=== PATIENT | female | born 1985 | race Two or more races ===

== ENCOUNTER → 2017-01-22 | Outpatient (REF) | payer BC, OTHER ==
[2017-01-22 18:54] LABS: BASO % 0.2 % (0.0-1.0); LARGE UNSTAINED CELL # 0.4 K/mm3 (0.0-0.4); LARGE UNSTAINED CELL % 1.9 % (0.0-4.0); LYMPH # 4.4 K/mm3 (1.5-4.5); MEAN CORPUSCULAR HEMOGLOBIN 30.6 pg (27.0-33.0); MEAN CORPUSCULAR HGB CONC 32.5 g/dl (32.0-36.5); MEAN CORPUSCULAR VOLUME 94.1 fl (80.0-96.0); MONO # 1.1 K/mm3 (0.0-0.8); MONO % 5.6 % (0.0-5.0); NEUTROPHILS # 14.6 K/mm3 (1.8-7.7); NEUTROPHILS % 72.3 % (36.0-66.0); PLATELET COUNT, AUTOMATED 418 k/mm3 (150-450); RED CELL DISTRIBUTION WIDTH 12.5 % (11.5-14.5); WHITE BLOOD COUNT 20.1 K/mm3 (4.0-10.0)
[2017-01-22 19:04] LABS: ALBUMIN 3.8 GM/DL (3.2-5.2); ALBUMIN/GLOBULIN RATIO 1.03 (1.00-1.93); ALKALINE PHOSPHATASE 77 U/L (45-117); ALT/SGPT 23 U/L (12-78); ANION GAP 6 MEQ/L (8-16); AST/SGOT 10 U/L (15-37); BILIRUBIN,TOTAL 0.6 MG/DL (0.2-1.0); BLOOD UREA NITROGEN 13 MG/DL (7-18); CALCIUM LEVEL 9.3 MG/DL (8.5-10.1); CARBON DIOXIDE LEVEL 29 MEQ/L (21-32); CHLORIDE LEVEL 106 MEQ/L (98-107); CREATININE FOR GFR 0.79 MG/DL (0.55-1.02); GLOMERULAR FILTRATION RATE > 60.0 (>60); GLUCOSE, FASTING 73 MG/DL (70-105); POTASSIUM SERUM 3.9 MEQ/L (3.5-5.1); SODIUM LEVEL 141 MEQ/L (136-145); TOTAL PROTEIN 7.5 GM/DL (6.4-8.2)
== END ==
LOC: M LABNEURO 17:00
PROVIDERS: ATTEND Psychiatry & Neurology Neurology
DX: G35 Multiple sclerosis (principal)

== ENCOUNTER → 2017-11-14 | Outpatient (CLI) | payer BC ==
[2017-11-14 16:31] LABS: MISCELLANEOUS TEST LAB See Separate Report
[2017-11-14 17:03] LABS: BASO % 0.5 % (0.0-1.0); EOS # 0.3 10^3/uL (0.0-0.50); EOS % 5.4 % (0.0-3.0); HEMATOCRIT 36.6 % (36.0-47.0); HEMOGLOBIN 12.4 g/dl (12.0-15.5); IMMATURE GRANULOCYTE % 0.2 % (0-3.0); LYMPH # 2.7 10^3/uL (1.5-4.5); LYMPH % 45.1 % (24.0-44.0); MEAN CORPUSCULAR HEMOGLOBIN 29.8 pg (27.0-33.0); MEAN CORPUSCULAR HGB CONC 33.9 g/dl (32.0-36.5); MONO # 0.8 10^3/uL (0.0-0.8); MONO % 12.5 % (0.0-5.0); NEUTROPHILS # 2.2 10^3/uL (1.8-7.7); NEUTROPHILS % 36.3 % (36.0-66.0); PLATELET COUNT, AUTOMATED 288 10^3/uL (150-450); RED BLOOD COUNT 4.16 10^6/uL (4.00-5.40); RED CELL DISTRIBUTION WIDTH 12.9 % (11.5-14.5); WHITE BLOOD COUNT 6.1 10^3/uL (4.0-10.0)
[2017-11-14 18:05] LABS: ALBUMIN 3.6 GM/DL (3.2-5.2); ALBUMIN/GLOBULIN RATIO 0.92 (1.00-1.93); ALKALINE PHOSPHATASE 73 U/L (45-117); ALT/SGPT 30 U/L (12-78); ANION GAP 8 MEQ/L (8-16); AST/SGOT 22 U/L (7-37); BILIRUBIN,TOTAL 0.4 MG/DL (0.2-1.0); BLOOD UREA NITROGEN 5 MG/DL (7-18); CALCIUM LEVEL 8.8 MG/DL (8.5-10.1); CARBON DIOXIDE LEVEL 26 MEQ/L (21-32); CHLORIDE LEVEL 107 MEQ/L (98-107); CREATININE FOR GFR 0.76 MG/DL (0.55-1.30); GLOMERULAR FILTRATION RATE > 60.0 (>60); GLUCOSE, FASTING 90 MG/DL (70-100); POTASSIUM SERUM 3.8 MEQ/L (3.5-5.1); SODIUM LEVEL 141 MEQ/L (136-145); TOTAL PROTEIN 7.5 GM/DL (6.4-8.2)
[2017-11-17 10:07] LABS: TOTAL 25(OH) VITAMIN D 12.2 NG/ML (30.0-100.0)
[2017-11-17 10:11] LABS: HEPATITIS B SURFACE ANTIBODY POSITIVE (POSITIVE)
[2017-11-17 10:19] LABS: HEPATITIS B SURFACE ANTIGEN NEGATIVE (NEGATIVE)
[2017-11-17 10:46] LABS: HEPATITIS C VIRUS ABY INDEX < 0.0 INDEX (<0.8)
[2017-11-27 00:06] LABS: ANTINUCLEAR ANTIBODIES DIRECT Negative (Negative); HBVCOREDIFF1 Negative (Negative); HBVCOREDIFF2 Negative (Negative); HEPATITIS BE ANTIBODY Negative (Negative); HEPATITIS BE ANTIGEN Negative (Negative); HERPES ZOSTER, VARICELLA IgG 702 index (Immune >165); JCV ANTIBODY Negative (.); QUANTIFERON GOLD TB Negative (Negative); SJOGREN'S ANTI SS-A <0.2 AI (0.0-0.9); SJOGREN'S ANTI SS-B <0.2 AI (0.0-0.9); TB Test (QFT) Antigen 0.06 IU/mL (.); TB Test (QFT) Mitogen 7.11 IU/mL (.); TB Test (QFT) Nil 0.06 IU/mL (.)
[2017-12-02 13:31] LABS: MOG-IgG1 FACS SEE SEPARATE REPORT
== END ==
LOC: M LAB 15:28
DX: G35 Multiple sclerosis (principal)
CPT/HCPCS: 84443

== ENCOUNTER 2018-07-13 16:46 | Emergency (ER) | payer BC ==
[~2018-07-13] VITALS: Ht 162.6 cm; Wt 63.6 kg
[2018-07-13] MEDS ORDERED: VITA500046 PO (17:03)
[2018-07-13] MEDS ORDERED: [UNRECOGNIZED DRUG - CODE] PO (17:03)
[2018-07-13] MEDS ORDERED: VITA500T53 PO (17:03)
[2018-07-13 18:14] LABS: HEMATOCRIT 34.4 % (36.0-47.0); HEMOGLOBIN 11.7 g/dl (12.0-15.5); MEAN CORPUSCULAR HEMOGLOBIN 29.9 pg (27.0-33.0); PLATELET COUNT, AUTOMATED 322 10^3/uL (150-450); RED BLOOD COUNT 3.91 10^6/uL (4.00-5.40)
[2018-07-13 18:27] LABS: INR 0.93; PROTHROMBIN TIME 12.6 SECONDS (12.1-14.4)
[2018-07-13] MEDS ORDERED: TYSA1INJ IV (18:27)
[2018-07-13 18:39] LABS: AMPHETAMINES LEVEL URINE NEGATIVE (NEGATIVE); BARBITURATES URINE NEGATIVE (NEGATIVE); BENZODIAZEPINES URINE NEGATIVE (NEGATIVE); CANNABINOIDS URINE NEGATIVE (NEGATIVE); COCAINE METABOLITE URINE NEGATIVE (NEGATIVE); METHADONE URINE NEGATIVE (NEGATIVE); OPIATES URINE NEGATIVE (NEGATIVE); PHENCYCLIDINE URINE NEGATIVE (NEGATIVE)
[2018-07-13 18:44] LABS: BLOOD UREA NITROGEN 11 MG/DL (7-18); CALCIUM LEVEL 8.8 MG/DL (8.5-10.1); CARBON DIOXIDE LEVEL 24 MEQ/L (21-32); CHLORIDE LEVEL 109 MEQ/L (98-107); CREATININE FOR GFR 0.84 MG/DL (0.55-1.30); ETHYL ALCOHOL (ETHANOL) < 0.003 % (0.000-0.010); GLOMERULAR FILTRATION RATE > 60.0 (>60); GLUCOSE, FASTING 94 MG/DL (70-100); POTASSIUM SERUM 3.8 MEQ/L (3.5-5.1); SODIUM LEVEL 139 MEQ/L (136-145)
[2018-07-13 18:48] LABS: WHITE BLOOD COUNT 13.1 10^3/uL (4.0-10.0)
--- NOTE | 2018-07-13 18:50 | REP ---
PA and lateral chest: There are no comparisons. The lung chiledrs are clear. The cardiac size is normal. The sylvain, mediastinum, and skeletal structures are unremarkable. Impression: Negative PA and lateral chest. Electronically Signed by Matt Corbett MD 07/13/2018 06:42 P
[2018-07-13 18:52] LABS: ATYPICAL LYMPH 1 % (0-5); EOSINOPHILS 2 % (0-5); LYMPHOCYTES 58 % (16-52); MONOCYTES 3 % (0-8); NEUTROPHILS 35 % (35-75); PLATELET ESTIMATE NORMAL (NORMAL)
[2018-07-13] MEDS ORDERED: CIPR-249 PO (19:48)
[2018-07-13] MEDS ORDERED: CIPROFLOXACIN 500 MG TAB PO ONE (20:00)
[2018-07-13 20:13] VITALS: BP 113/69
--- NOTE | 2018-07-14 18:59 | ECGEPIP ---
Stationary ECG Study [facility] - ED Test Date: 2018-07-13 Pat Name: CRISTOBAL DONG Department: Room: - Gender: F Bow Stapler: MONA : 1985 Requested By: LISSA WALL Order Number: [id number] Reading MD: Bri Crystal Measurements Intervals Mena Rate: 65 P: 60 MI: 174 QRS: 37 QRSD: 88 T: 17 QT: 374 QTc: 389 Interpretive Statements SINUS RHYTHM NO PRIOR FOR COMPARISON Electronically Signed On 07-14-2018 18:59:13 EST by Bri Crystal
== END 2018-07-13 20:14 | disposition home or self-care (01) ==
LOC: M ED 16:46
DX: R55 Syncope and collapse (principal); N39.0 Urinary tract infection, site not specified; G35 Multiple sclerosis; J45.909 Unspecified asthma, uncomplicated; Z79.899 Other long term (current) drug therapy
CPT/HCPCS: 36415; 71046; 80048; 80307; 81001; 84443; 85025; 85610; 87086; 93005; 94760; 99284; G0480

== ENCOUNTER 2019-02-19 14:28 | Outpatient (CLI) | payer BC ==
[~2019-02-19] VITALS: Ht 162.6 cm; Wt 63.6 kg
[~2019-02-19 14:28] MED LIST: CIPR-249 PO; TYSA1INJ IV; VITA500046 PO; VITA500T17 PO; [UNRECOGNIZED DRUG - CODE] PO
[2019-02-19 14:30] VITALS: BP 111/58
[2019-02-19] MEDS ORDERED: methylPREDNISolone 1,000 MG, VIAL MATE ADAPTER 1 EACH in D5W 250 ML IV ONE (14:45)
[2019-02-19] MEDS ORDERED: MIRE1IUD IU (15:18)
[2019-02-19 16:20] VITALS: BP 117/67
== END 2019-02-19 16:20 | disposition home or self-care (01) ==
LOC: M INFU 14:28
PROVIDERS: ATTEND Psychiatry & Neurology Neurology
DX: G35 Multiple sclerosis (principal)
CPT/HCPCS: 96365; J2930

== ENCOUNTER 2019-02-20 09:19 | Outpatient (CLI) | payer BC ==
[~2019-02-20] VITALS: Ht 162.6 cm; Wt 64.0 kg
[~2019-02-20 09:19] MED LIST changes: +MIRE1IUD IU
[2019-02-20 09:40] VITALS: BP 146/64
[2019-02-20] MEDS ORDERED: methylPREDNISolone 1000 MG VIAL (J2930) As Ordered ONE (09:49)
[2019-02-20] MEDS ORDERED: methylPREDNISolone 1,000 MG, VIAL MATE ADAPTER 1 EACH in NS 250 ML IV ONE (10:00)
[2019-02-20 11:05] VITALS: BP 122/67
== END 2019-02-20 11:10 | disposition home or self-care (01) ==
LOC: M OPCLIPED 09:19 → M PED 09:20 → M OPCLIPED 11:10
PROVIDERS: ATTEND Psychiatry & Neurology Neurology
DX: G35 Multiple sclerosis (principal)
CPT/HCPCS: 96365; J2930

== ENCOUNTER 2020-04-12 14:52 | Outpatient (CLI) | payer BC ==
[~2020-04-12] VITALS: Ht 162.6 cm; Wt 86.7 kg
[~2020-04-12 14:52] MED LIST changes: +methylPREDNISolone 1,000 MG, VIAL MATE ADAPTER 1 EACH in D5W 250 ML IV ONE
[2020-04-12 15:00] VITALS: BP 129/69
[2020-04-12] MEDS ORDERED: NEUR300C PO (15:16)
[2020-04-12 16:35] VITALS: BP 124/69
[2020-04-12 17:00] VITALS: BP 122/76
== END 2020-04-12 17:00 | disposition home or self-care (01) ==
LOC: M INFU 14:52
PROVIDERS: ATTEND Nurse Practitioner
DX: G35 Multiple sclerosis (principal)
CPT/HCPCS: 96365; J2930

== ENCOUNTER 2020-04-13 14:59 | Outpatient (CLI) | payer BC ==
[~2020-04-13] VITALS: Ht 162.6 cm; Wt 86.7 kg
[~2020-04-13 14:59] MED LIST changes: +NEUR300C PO; -methylPREDNISolone 1,000 MG, VIAL MATE ADAPTER 1 EACH in D5W 250 ML IV ONE
[2020-04-13] MEDS ORDERED: methylPREDNISolone 1,000 MG, VIAL MATE ADAPTER 1 EACH in D5W 250 ML IV ONE (15:00)
[2020-04-13 15:38] VITALS: BP 121/74
[2020-04-13 16:35] VITALS: BP 124/68
== END 2020-04-13 16:35 | disposition home or self-care (01) ==
LOC: M INFU 14:59
PROVIDERS: ATTEND Nurse Practitioner
DX: G35 Multiple sclerosis (principal)
CPT/HCPCS: 96365; J2930

== ENCOUNTER 2020-04-14 13:50 | Outpatient (CLI) | payer BC ==
[~2020-04-14] VITALS: Ht 162.6 cm; Wt 86.7 kg
[2020-04-14] MEDS ORDERED: methylPREDNISolone 1,000 MG, VIAL MATE ADAPTER 1 EACH in D5W 250 ML IV ONE (14:00)
[2020-04-14 14:13] VITALS: BP 125/68
[2020-04-14 15:20] VITALS: BP 118/63
== END 2020-04-14 15:20 | disposition home or self-care (01) ==
LOC: M INFU 13:50
PROVIDERS: ATTEND Nurse Practitioner
DX: G35 Multiple sclerosis (principal)
CPT/HCPCS: 96365; J2930

== ENCOUNTER → 2020-06-13 | Outpatient (CLI) | payer BC ==
[~2020-06-13] MED LIST changes: +PROHANCE 279.3MG/ML 15ML VIAL As Ordered ONE
--- NOTE | 2020-06-13 09:17 | REPVR ---
PROCEDURE INFORMATION: Exam: MR Head Without and With Contrast Exam date and time: 06/13/2020 9:08 AM Age: 34 years old Clinical indication: Condition or disease; Multiple sclerosis; Additional info: Ms TECHNIQUE: Imaging protocol: MR of the head without and with intravenous contrast. 3D rendering (Not supervised by radiologist): MIP and/or 3D reconstructed images were created by the technologist. Contrast material: PROHANCE; Contrast volume: 13 ml; Contrast route: INTRAVENOUS (IV); COMPARISON: No relevant prior studies available. FINDINGS: Brain: Multiple areas of periventricular, subcortical, and deep white matter FLAIR signal abnormalities, left greater than right consistent with patient's given history of multiple scleroses. No associated abnormal enhancement or restricted diffusion to suggest active demyelinating plaque. No acute infarct, mass, midline shift, or mass effect. No evidence of hemorrhage. No abnormal enhancement. Cerebral ventricles: No ventriculomegaly. Bones/joints: Unremarkable. Paranasal sinuses: Mild mucosal thickening of bilateral maxillary sinuses and ethmoidal air cells. Mastoid air cells: Normal as visualized. No mastoid effusion. Orbits: Unremarkable. Soft tissues: Unremarkable. IMPRESSION: Multiple areas of periventricular, subcortical, and deep white matter FLAIR signal abnormalities, left greater than right consistent with patient's given history of multiple scleroses. No associated abnormal enhancement or restricted diffusion to suggest active demyelinating plaque. Electronically signed by: Jazmin Martin On 06/13/2020 09:18:16 AM
--- NOTE | 2020-06-13 09:21 | REPVR ---
PROCEDURE INFORMATION: Exam: MR Cervical Spine Without and With Contrast Exam date and time: 06/13/2020 9:08 AM Age: 34 years old Clinical indication: Condition or disease; Other: Ms TECHNIQUE: Imaging protocol: Multiplanar magnetic resonance images of the cervical spine without and with intravenous contrast. Contrast material: PROHANCE; Contrast volume: 13 ml; Contrast route: INTRAVENOUS (IV); COMPARISON: No relevant prior studies available. FINDINGS: Vertebrae: Unremarkable. Spinal cord: Elen on STIR images, there are large diffuse areas of abnormal signal throughout the visualized cervical and thoracic spine with large confluent area is seen at the level of C4-C6 measuring about 14 mm in craniocaudal direction. No associated abnormal enhancement. Findings are consistent with patient given history of multiple scleroses plaques. No cord compression. Discs/Spinal canal/Neural foramina: No significant disc disease. No significant spinal stenosis. Vasculature: Expected flow voids in the vertebral arteries. Soft tissues: Unremarkable IMPRESSION: Elen on STIR images, there are large diffuse areas of abnormal signal throughout the visualized cervical and thoracic spine with large confluent area is seen at the level of C4-C6 measuring about 14 mm in craniocaudal direction. No associated abnormal enhancement. Findings are consistent with patient given history of multiple scleroses plaques. No cord compression. Electronically signed by: Jazmin Martin On 06/13/2020 09:21:54 AM
== END ==
LOC: M RAD 07:26
DX: G35 Multiple sclerosis (principal)
CPT/HCPCS: 70553; 72156; A9576

== ENCOUNTER 2020-06-23 06:52 | Outpatient (CLI) | payer BC ==
[~2020-06-23] VITALS: Ht 162.6 cm; Wt 66.7 kg
[~2020-06-23 06:52] MED LIST changes: -PROHANCE 279.3MG/ML 15ML VIAL As Ordered ONE
[2020-06-23 06:55] VITALS: BP 135/60
[2020-06-23] MEDS ORDERED: NATALIZUMAB OVER 1 HOUR IV ONE ×2 (07:00)
[2020-06-23] MEDS ORDERED: NS 1,000 ML IV SCH (07:00)
[2020-06-23] MEDS ORDERED: diphenhydrAMINE 50MG/ML VIAL (J1200) IV PRN (07:01)
[2020-06-23] MEDS ORDERED: EPINEPHrine INJ 1 MG/ML 1ML AMP IM PRN (07:01)
[2020-06-23] MEDS ORDERED: methylPREDNISolone 125MG 2ML VIAL IV PRN (07:01)
[2020-06-23] MEDS ORDERED: ALBUTEROL SULFATE 2.5 MG/0.5 ML INH NEB SOLN INH PRN (07:01)
[2020-06-23 08:15] VITALS: BP 128/74
[2020-06-23 09:11] VITALS: BP 127/81
== END 2020-06-23 09:15 | disposition home or self-care (01) ==
LOC: M INFU 06:52
PROVIDERS: ATTEND Nurse Practitioner Adult Health
DX: G35 Multiple sclerosis (principal)
CPT/HCPCS: 96365; J2323

== ENCOUNTER 2020-07-21 06:55 | Outpatient (CLI) | payer BC ==
[~2020-07-21] VITALS: Ht 162.6 cm; Wt 66.7 kg
[2020-07-21] MEDS ORDERED: NS 1,000 ML IV ONE (07:00)
[2020-07-21] MEDS ORDERED: NATALIZUMAB OVER 1 HOUR IV ONE ×2 (07:00)
[2020-07-21 07:07] VITALS: BP 127/61
[2020-07-21 07:23] VITALS: BP 127/61
[2020-07-21] MEDS ORDERED: methylPREDNISolone (125 MG/2 ML) IV IV PRN (07:30)
[2020-07-21] MEDS ORDERED: EPINEPHrine (1MG/ML) IV IM PRN (07:30)
[2020-07-21] MEDS ORDERED: ALBUTEROL SULFATE (2.5MG/0.5ML) NEB INH PRN (07:30)
[2020-07-21] MEDS ORDERED: diphenhydrAMINE (50MG/ML) IV IV PRN (07:30)
[2020-07-21 08:25] VITALS: BP 132/76
[2020-07-21 08:59] VITALS: BP 131/81
== END 2020-07-21 09:00 | disposition home or self-care (01) ==
LOC: M INFU 06:55
PROVIDERS: ATTEND Nurse Practitioner Adult Health
DX: G35 Multiple sclerosis (principal)
CPT/HCPCS: 96365; J2323

== ENCOUNTER 2020-08-18 06:49 | Outpatient (CLI) | payer BC ==
[~2020-08-18] VITALS: Ht 162.6 cm; Wt 66.7 kg
[2020-08-18 07:00] VITALS: BP 117/68
[2020-08-18] MEDS ORDERED: NATALIZUMAB OVER 1 HOUR IV ONE ×2 (07:00)
[2020-08-18] MEDS ORDERED: NS 1,000 ML IV ONE (07:00)
[2020-08-18] MEDS ORDERED: ALBUTEROL SULFATE 2.5 MG/0.5 ML INH NEB SOLN INH PRN (07:01)
[2020-08-18] MEDS ORDERED: methylPREDNISolone 125MG 2ML VIAL IV PRN (07:01)
[2020-08-18] MEDS ORDERED: EPINEPHrine INJ 1 MG/ML 1ML AMP IM PRN (07:01)
[2020-08-18] MEDS ORDERED: diphenhydrAMINE 50MG/ML VIAL (J1200) IV PRN (07:01)
[2020-08-18 07:02] VITALS: BP 117/68
[2020-08-18 07:11] VITALS: BP 117/68
[2020-08-18 08:42] VITALS: BP 106/59
[2020-08-18 09:00] VITALS: BP 111/57
== END 2020-08-18 09:00 | disposition home or self-care (01) ==
LOC: M INFU 06:49
PROVIDERS: ATTEND Nurse Practitioner Adult Health
DX: G35 Multiple sclerosis (principal)
CPT/HCPCS: 96365; J2323

== ENCOUNTER 2020-09-15 07:08 | Outpatient (CLI) | payer BC ==
[~2020-09-15] VITALS: Ht 162.6 cm; Wt 66.7 kg
[~2020-09-15 07:08] MED LIST changes: +ALBUTEROL SULFATE 2.5 MG/0.5 ML INH NEB SOLN INH PRN; +EPINEPHrine INJ 1 MG/ML 1ML AMP IM PRN; +diphenhydrAMINE 50MG/ML VIAL (J1200) IV PRN; +methylPREDNISolone 125MG 2ML VIAL IV PRN
[2020-09-15 07:22] VITALS: BP 136/74
[2020-09-15] MEDS ORDERED: NS 1,000 ML IV SCH (07:30)
[2020-09-15] MEDS ORDERED: NATALIZUMAB OVER 1 HOUR IV ONE ×2 (07:30)
[2020-09-15 09:20] VITALS: BP 136/84
== END 2020-09-15 09:20 | disposition home or self-care (01) ==
LOC: M INFU 07:08
PROVIDERS: ATTEND Nurse Practitioner Adult Health
DX: G35 Multiple sclerosis (principal)
CPT/HCPCS: 96365; J2323

== ENCOUNTER 2021-01-11 08:41 | Outpatient (CLI) | payer BC ==
[~2021-01-11] VITALS: Ht 162.6 cm; Wt 66.7 kg
[~2021-01-11 08:41] MED LIST changes: +NATALIZUMAB OVER 1 HOUR IV ONE
[2021-01-11 09:29] LABS: BASO # 0.1 10^3/uL (0.0-0.2); BASO % 0.7 % (0.0-1.0); EOS # 0.1 10^3/uL (0.0-0.5); EOS % 1.8 % (0.0-3.0); HEMATOCRIT 36.5 % (36.0-47.0); HEMOGLOBIN 11.9 g/dl (12.0-15.5); LYMPH # 2.9 10^3/uL (1.5-5.0); LYMPH % 42.7 % (24.0-44.0); MEAN CORPUSCULAR HEMOGLOBIN 30.4 pg (27.0-33.0); MEAN CORPUSCULAR HGB CONC 32.6 g/dl (32.0-36.5); MEAN CORPUSCULAR VOLUME 93.1 fl (80.0-96.0); MONO # 0.6 10^3/uL (0.0-0.8); MONO % 8.6 % (2.0-8.0); NEUTROPHILS # 3.1 10^3/uL (1.5-8.5); NEUTROPHILS % 45.9 % (36.0-66.0); PLATELET COUNT, AUTOMATED 254 10^3/uL (150-450); RED BLOOD COUNT 3.92 10^6/uL (4.00-5.40); WHITE BLOOD COUNT 6.8 10^3/uL (4.0-10.0)
[2021-01-11 09:48] LABS: ALBUMIN 3.6 GM/DL (3.2-5.2); ALT/SGPT 18 U/L (12-78); BILIRUBIN,TOTAL 0.7 MG/DL (0.2-1.0); BLOOD UREA NITROGEN 10 MG/DL (7-18); CALCIUM LEVEL 9.1 MG/DL (8.5-10.1); CARBON DIOXIDE LEVEL 25 MEQ/L (21-32); CHLORIDE LEVEL 109 MEQ/L (98-107); GLOMERULAR FILTRATION RATE > 60.0 (>60); GLUCOSE, FASTING 83 MG/DL (70-100); POTASSIUM SERUM 3.9 MEQ/L (3.5-5.1); SODIUM LEVEL 140 MEQ/L (136-145); TOTAL PROTEIN 6.6 GM/DL (6.4-8.2)
[2021-01-11 09:54] VITALS: BP 132/73
[2021-01-11 10:30] VITALS: BP 129/79
== END 2021-01-11 10:30 | disposition home or self-care (01) ==
LOC: M INFU 08:41
PROVIDERS: ATTEND Nurse Practitioner Adult Health
DX: G35 Multiple sclerosis (principal)
CPT/HCPCS: 36592; 80053; 85025; 86849; 87798; 96365; J2323

== ENCOUNTER → 2021-06-20 | Outpatient (CLI) | payer BC ==
[~2021-06-20] MED LIST changes: -ALBUTEROL SULFATE 2.5 MG/0.5 ML INH NEB SOLN INH PRN; -EPINEPHrine INJ 1 MG/ML 1ML AMP IM PRN; -NATALIZUMAB OVER 1 HOUR IV ONE; +PROHANCE 279.3MG/ML 15ML VIAL ONE; -diphenhydrAMINE 50MG/ML VIAL (J1200) IV PRN; -methylPREDNISolone 125MG 2ML VIAL IV PRN
== END ==
LOC: M PLAIMG 13:55
PROVIDERS: ATTEND Psychiatry & Neurology Neurology
DX: G35 Multiple sclerosis (principal)
CPT/HCPCS: 70553; 72156; A9576

== ENCOUNTER → 2022-03-18 | Outpatient (CLI) | payer BC ==
[~2022-03-18] MED LIST changes: -PROHANCE 279.3MG/ML 15ML VIAL ONE
== END ==
LOC: M PLALAB 14:11
PROVIDERS: ATTEND Obstetrics & Gynecology
DX: Z82.8 Family history of other disabilities and chronic diseases leading to disablement, not elsewhere classified (principal)

== ENCOUNTER → 2022-05-09 | Outpatient (CLI) | payer BC | LOC: M WHC 08:58 | PROVIDERS: ATTEND Obstetrics & Gynecology | DX: O99.352 Diseases of the nervous system complicating pregnancy, second trimester (principal); Z3A.20 20 weeks gestation of pregnancy ==

== ENCOUNTER → 2022-05-22 | Outpatient (CLI) | payer BC ==
[2022-05-22 15:34] LABS: HEMATOCRIT 37.8 % (36.0-47.0); HEMOGLOBIN 12.1 g/dl (12.0-15.5); MEAN CORPUSCULAR HEMOGLOBIN 31.8 pg (27.0-33.0); MEAN CORPUSCULAR VOLUME 99.5 fl (80.0-96.0); PLATELET COUNT, AUTOMATED 288 10^3/uL (150-450); WHITE BLOOD COUNT 11.3 10^3/uL (4.0-10.0)
[2022-05-22 16:30] LABS: HIV 1&2 SCREEN CENTAUR NEGATIVE (NEGATIVE)
[2022-05-22 16:39] LABS: HEPATITIS C VIRUS ABY INDEX 0.1 INDEX (<0.8)
== END ==
LOC: M PLALAB 12:13
PROVIDERS: ATTEND Obstetrics & Gynecology
DX: O09.511 Supervision of elderly primigravida, first trimester (principal); Z82.8 Family history of other disabilities and chronic diseases leading to disablement, not elsewhere classified

== ENCOUNTER → 2022-06-14 | Outpatient (CLI) | payer BC | LOC: M WHC 13:56 | PROVIDERS: ATTEND Advanced Practice Midwife | DX: Z34.82 Encounter for supervision of other normal pregnancy, second trimester (principal) ==

== ENCOUNTER → 2022-07-01 | Outpatient (CLI) | payer BC ==
[2022-07-01 10:54] LABS: HEMATOCRIT 37.2 % (36.0-47.0); MEAN CORPUSCULAR HEMOGLOBIN 32.3 pg (27.0-33.0); MEAN CORPUSCULAR HGB CONC 32.3 g/dl (32.0-36.5); PLATELET COUNT, AUTOMATED 299 10^3/uL (150-450); RED BLOOD COUNT 3.72 10^6/uL (4.00-5.40); WHITE BLOOD COUNT 11.2 10^3/uL (4.0-10.0)
[2022-07-01 12:31] LABS: GC DNA AMPLIFICATION NEGATIVE (NEGATIVE)
== END ==
LOC: M PLALAB 07:17
PROVIDERS: ATTEND Specialist
DX: Z34.82 Encounter for supervision of other normal pregnancy, second trimester (principal); Z3A.00 Weeks of gestation of pregnancy not specified

== ENCOUNTER → 2022-09-04 | Outpatient (REF) | payer BC | LOC: M PLALAB 15:31 | PROVIDERS: ATTEND Obstetrics & Gynecology | DX: Z34.83 Encounter for supervision of other normal pregnancy, third trimester (principal) ==

== ENCOUNTER 2022-09-24 08:49 | Inpatient (IN) | payer BC ==
[~2022-09-24] VITALS: Ht 162.6 cm; Wt 89.7 kg
[2022-09-24] MEDS ORDERED: MULTTAB20 PO (08:59)
[2022-09-24 09:27] VITALS: BP 112/74
[2022-09-24] MEDS ORDERED: HOME MED LIST COMPLETE! XX SCH (10:45)
[2022-09-24] MEDS ORDERED: OXYTOCIN DRIP 30 UNITS in IV 1 EA IV PRN (10:55)
[2022-09-24] MEDS ORDERED: LIDOCAINE 1% MDV 20ML VIAL INFIL PRN (10:55)
[2022-09-24 11:24] VITALS: BP 136/68
[2022-09-24 11:41] VITALS: BP 127/78
[2022-09-24 11:44] LABS: HEMATOCRIT 37.3 % (36.0-47.0); HEMOGLOBIN 12.1 g/dl (12.0-15.5); MEAN CORPUSCULAR HEMOGLOBIN 30.8 pg (27.0-33.0); MEAN CORPUSCULAR HGB CONC 32.4 g/dl (32.0-36.5); MEAN CORPUSCULAR VOLUME 94.9 fl (80.0-96.0); PLATELET COUNT, AUTOMATED 310 10^3/uL (150-450); RED BLOOD COUNT 3.93 10^6/uL (4.00-5.40); WHITE BLOOD COUNT 12.7 10^3/uL (4.0-10.0)
[2022-09-24] MEDS: miSOPROStol 50MCG 1/2 TABLET PO SCH ×2 (11:44→15:46)
[2022-09-24 12:52] VITALS: BP 124/75
[2022-09-24] MEDS ORDERED: TERBUTALINE SULFATE 1 MG/ML 1ML VIAL SC ONE (13:00)
[2022-09-24 13:52] VITALS: BP 114/73
[2022-09-24 14:51] VITALS: BP 101/58
[2022-09-24] MEDS ORDERED: OXYTOCIN DRIP 30 UNITS in IV 1 EA IV SCH (21:20)
[2022-09-24] MEDS ORDERED: diphenhydrAMINE 50MG/ML VIAL IV PRN (22:15)
[2022-09-24] MEDS ORDERED: ePHEDrine SULFATE 25 MG/5 ML(5MG/ML) SYRINGE IVP PRN (22:15)
[2022-09-24] MEDS ORDERED: EPIDURAL/PCA KEYS XX PRN (22:15)
[2022-09-24] MEDS ORDERED: NALOXONE INJ 0.4MG/1ML VIAL IV PRN (22:15)
[2022-09-24] MEDS ORDERED: FENTANYL/ROPIVACAINE/NACL BAG 100 ML EPIDURAL SCH (22:15)
[2022-09-24] MEDS ORDERED: LR 500 ML IV PRN (22:15)
[2022-09-24] MEDS ORDERED: ONDANSETRON 4MG 2ML VIAL IV PRN (22:15)
[2022-09-24] MEDS ORDERED: REFLB XX ONE (22:26)
[2022-09-24] MEDS: LR 1,000 ML IV SCH (23:59)
[2022-09-25] VITALS (7 sets, daily range): BP systolic 107–138; BP diastolic 53–72
[2022-09-25] MEDS: LR 1,000 ML IV SCH ×4 (01:27→14:00)
[2022-09-25] MEDS ORDERED: METHYLERGONOVINE MALEATE 0.2MG/ML 1ML VIAL IM PRN ×2 (05:40→06:00)
[2022-09-25] MEDS ORDERED: ceFAZolin SOD 2 GM in IV 1 EA IV ONE (05:40)
[2022-09-25] MEDS ORDERED: AZITHROMYCIN INJ 500 MG, VIAL MATE ADAPTER 1 EACH in NS 250 ML IV ONE (05:40)
[2022-09-25] MEDS ORDERED: OXYTOCIN DRIP 30 UNITS in IV 1 EA IV PRN (05:40)
[2022-09-25] MEDS ORDERED: BICITRA 30ML SOLN UDC PO ONE (05:40)
[2022-09-25] MEDS ORDERED: TRANEXAMIC ACID INJection 1,000 MG in NS 100 ML IV PRN (05:40)
[2022-09-25] MEDS ORDERED: OXYTOCIN INJ 10UNITS/ML 1ML VIAL As Ordered ONE (05:44)
[2022-09-25] MEDS ORDERED: LIDOCAINE 2% W/EPINEPHRINE 20ML VIAL **PRES FREE As Ordered ONE (05:44)
[2022-09-25] MEDS ORDERED: ONDANSETRON 4MG 2ML VIAL IV PRN ×2 (06:00→07:35)
[2022-09-25] MEDS ORDERED: RHOGAM 300MCG (1500IU) INJ IM SCH (06:00)
[2022-09-25] MEDS ORDERED: OXYTOCIN DRIP 30 UNITS in IV 1 EA IV SCH (06:00)
[2022-09-25] MEDS ORDERED: SIMETHICONE 80MG CHEW TAB PO PRN (06:00)
[2022-09-25] MEDS ORDERED: PERCOCET 5MG/325MG TAB PO PRN ×2 (06:00)
[2022-09-25] MEDS ORDERED: MOM 30ML SUSPENSION UDC PO PRN (06:00)
[2022-09-25] MEDS ORDERED: LIDOCAINE PRES-FREE 2% 10ML AMP As Ordered ONE (06:06)
[2022-09-25] MEDS ORDERED: ONDANSETRON 4MG 2ML VIAL As Ordered ONE (06:21)
[2022-09-25] MEDS ORDERED: MORPHINE PRES-FREE INJ 10 MG/10 ML VIAL As Ordered ONE (06:25)
[2022-09-25] MEDS ORDERED: KETOROLAC 60MG 2ML VIAL As Ordered ONE (06:28)
[2022-09-25] MEDS ORDERED: fentaNYL 100 MCG/2 ML INJECTION As Ordered ONE (06:38)
[2022-09-25 06:50] LABS: CORD GAS ABE A -1.9; CORD GAS HCO3 A 25.7 MEQ/L; CORD GAS O2 SAT A 26.6 %; CORD GAS PCO2 A 54.2 mmHg; CORD GAS PH A 7.293 UNITS; CORD GAS PO2 A 14.7 mmHg; CORD GAS SBC A 21.1 MEQ/L; CORD GAS TCO2 A 27.3 MEQ/L
[2022-09-25 06:52] LABS: CORD GAS ABE V -3.9; CORD GAS HCO3 V 21.3 MEQ/L; CORD GAS O2 SAT V 74.5 %; CORD GAS PCO2 V 39.5 mmHg; CORD GAS PH V 7.35 UNITS; CORD GAS SBC V 20.7 MEQ/L; CORD GAS TCO2 V 22.5 MEQ/L
[2022-09-25] MEDS ORDERED: diphenhydrAMINE 50MG/ML VIAL IV PRN (07:35)
[2022-09-25] MEDS ORDERED: HYDROMORPHONE HCL 0.5 MG/ 0.5 ML SYRINGE IV PRN (07:35)
[2022-09-25] MEDS ORDERED: oxyCODONE 5MG TAB PO PRN (07:35)
[2022-09-25] MEDS ORDERED: METOCLOPRAMIDE INJ 10MG/2ML VIAL IV PRN (07:35)
[2022-09-25] MEDS ORDERED: NALOXONE INJ 0.4MG/1ML VIAL IV PRN ×2 (07:35)
[2022-09-25] MEDS ORDERED: MEPERIDINE 25 MG/ML 1ML VIAL IV PRN (07:35)
[2022-09-25] MEDS ORDERED: fentaNYL 100 MCG/2 ML INJECTION IV PRN (07:35)
[2022-09-25] MEDS ORDERED: **NOTE PATIENT COMMENT** MISC XX SCH (07:35)
[2022-09-25] MEDS: SLF 3 ML SYR IV SCH ×3 (07:35→23:57)
[2022-09-25] MEDS: FERROUS SULFATE 325MG TAB PO SCH (09:00)
[2022-09-25] MEDS: PRENATAL VITAMINS CHEWABLE TABLET PO SCH (09:00)
[2022-09-25] MEDS: DOCUSATE SODIUM 100MG CAPSULE PO SCH ×2 (09:00→20:40)
[2022-09-25] MEDS: KETOROLAC 30 MG/ML 1ML VIAL IV SCH ×3 (11:35→23:58)
[2022-09-26 02:00] VITALS: BP 100/54
[2022-09-26 06:00] VITALS: BP_SYST 117; BP_SYST 123; BP_DIAS 59; BP_DIAS 68
[2022-09-26 07:52] LABS: HEMATOCRIT 27.5 % (36.0-47.0); MEAN CORPUSCULAR HEMOGLOBIN 30.9 pg (27.0-33.0); MEAN CORPUSCULAR VOLUME 96.5 fl (80.0-96.0); PLATELET COUNT, AUTOMATED 195 10^3/uL (150-450); RED BLOOD COUNT 2.85 10^6/uL (4.00-5.40); WHITE BLOOD COUNT 19.8 10^3/uL (4.0-10.0)
[2022-09-26 08:00] LABS: HEMOGLOBIN 8.8 g/dl (12.0-15.5)
[2022-09-26] MEDS: IBUPROFEN 800 MG TAB PO SCH ×2 (09:55→17:15)
[2022-09-26] MEDS: PRENATAL VITAMINS CHEWABLE TABLET PO SCH (09:55)
[2022-09-26] MEDS: FERROUS SULFATE 325MG TAB PO SCH (09:55)
[2022-09-26] MEDS: DOCUSATE SODIUM 100MG CAPSULE PO SCH ×2 (09:55→20:32)
[2022-09-26 10:00] VITALS: BP 113/55
[2022-09-26 14:00] VITALS: BP 100/61
[2022-09-26] MEDS ORDERED: PERCOCET PO (16:04)
[2022-09-26] MEDS ORDERED: COLA100C5 PO (16:04)
[2022-09-26] MEDS ORDERED: IBUP80TA PO (16:04)
[2022-09-26 22:00] VITALS: BP 106/64
[2022-09-27] MEDS: IBUPROFEN 800 MG TAB PO SCH ×3 (00:27→16:57)
[2022-09-27 02:00] VITALS: BP 122/75
[2022-09-27 06:00] VITALS: BP 114/63
[2022-09-27] MEDS ORDERED: MEASLES,MUMPS,RUBELLA VACCINE INJ (MMR-II) SC.IMMUN ONE (09:00)
[2022-09-27] MEDS: FERROUS SULFATE 325MG TAB PO SCH (09:09)
[2022-09-27] MEDS: PRENATAL VITAMINS CHEWABLE TABLET PO SCH (09:09)
[2022-09-27] MEDS: DOCUSATE SODIUM 100MG CAPSULE PO SCH ×2 (09:09→20:59)
[2022-09-27 18:00] VITALS: BP 125/60
[2022-09-28] MEDS: IBUPROFEN 800 MG TAB PO SCH ×2 (00:37→08:48)
[2022-09-28 06:00] VITALS: BP 136/76
[2022-09-28] MEDS: FERROUS SULFATE 325MG TAB PO SCH (08:48)
[2022-09-28] MEDS: PRENATAL VITAMINS CHEWABLE TABLET PO SCH (08:48)
[2022-09-28] MEDS: DOCUSATE SODIUM 100MG CAPSULE PO SCH (08:49)
[2022-09-28 09:20] VITALS: BP 136/76
== END 2022-09-28 13:34 | disposition home or self-care (01) | DRG 540 ==
LOC: M LDO 08:49 → M LDI 10:34 → M OBS 09-25 08:20
PROVIDERS: ADMIT Obstetrics & Gynecology; ATTEND Obstetrics & Gynecology
PROC: 3E033VJ Introduction of Other Hormone into Peripheral Vein, Percutaneous Approach (ICD-10-PCS; 2022-09-24)
PROC: 10D00Z1 Extraction of Products of Conception, Low, Open Approach (ICD-10-PCS; principal; 2022-09-25 05:43)
DX: O76 Abnormality in fetal heart rate and rhythm complicating labor and delivery (principal); O64.0XX0 Obstructed labor due to incomplete rotation of fetal head, not applicable or unspecified; Z3A.39 39 weeks gestation of pregnancy; Z37.0 Single live birth

== ENCOUNTER → 2022-11-22 | Outpatient (CLI) | payer BC ==
[~2022-11-22] MED LIST changes: +COLA100C5 PO; +IBUP80TA PO; +MULTTAB20 PO; +PERCOCET PO
== END ==
LOC: M PLARAD 13:15
PROVIDERS: ATTEND Psychiatry & Neurology Neurology
DX: G35 Multiple sclerosis (principal)

== ENCOUNTER → 2023-03-06 | Outpatient (CLI) | payer BC ==
[~2023-03-06] MED LIST changes: +PROHANCE 279.3MG/ML 15ML VIAL As Ordered ONE; +PROHANCE 279.3MG/ML 5ML VIAL As Ordered ONE
== END ==
LOC: M RAD 06:58
PROVIDERS: ATTEND Psychiatry & Neurology Neurology
DX: G35 Multiple sclerosis (principal)

== ENCOUNTER → 2023-04-22 | Outpatient (CLI) | payer BC ==
[~2023-04-22] MED LIST changes: -PROHANCE 279.3MG/ML 15ML VIAL As Ordered ONE; -PROHANCE 279.3MG/ML 5ML VIAL As Ordered ONE
[2023-04-22 09:49] LABS: C REACTIVE PROTEIN QUANTITATIV < 0.40 MG/DL (<1.0); RHEUMATOID FACTOR QUANT < 3.5 IU/ML (<14)
[2023-05-01 17:07] LABS: ACETYLCHOLINE RCPTOR BINDING A < 0.03 nmol/L (0.00-0.24); ACETYLCHOLINE RCPTOR BLOCK AB 12 % (0-25); ANCA-ATYPICAL <1:20 titer (Neg:<1:20); ANTINUCLEAR ANTIBODIES DIRECT Negative (Negative); CYTOPLASMIC NEUTROP AB ANCA-C <1:20 titer (Neg:<1:20); HLA-B27 Negative (.); PERINUCLEAR AB ANCA-P <1:20 titer (Neg:<1:20)
== END ==
LOC: M LAB 07:29
DX: H57.89 Other specified disorders of eye and adnexa (principal)